=== PATIENT | male | born 1960 | race Caucasian/White ===

== ENCOUNTER 2016-09-18 17:13 | Emergency (ER) | payer MEDICAID ==
[~2016-09-18] VITALS: Ht 182.9 cm; Wt 91.6 kg
[2016-09-18] MEDS ORDERED: PROPRANOLOL HCL10 MG ORAL (17:23)
[2016-09-18 17:35] VITALS: BP 130/61
[2016-09-18] MEDS ORDERED: Norco 5mg/325mg tab ORAL ONE (18:00)
[2016-09-18] MEDS ORDERED: IBUPROFEN600 MG ORAL (18:35)
[2016-09-18] MEDS ORDERED: NORCO 5-325 TA1 EAC1 ORAL (18:35)
[2016-09-18 18:55] VITALS: BP 130/61
--- NOTE | 2016-09-18 23:08 | Emergency Room Report ---
History of Present Illness General Chief Complaint: Laceration Source: Patient Present Illness [facility] The patient is a 55-year-old male presenting for injury to the left index finger. He states that he closed the trunk onto it. He then noticed immediate pain and bleeding. Pain described as an 8/10 dull ache and is worse with touch. Does not radiate. He denies numbness or tingling. He denies any other injury. Tetanus shot was within 10 years. He denies other symptoms Allergies: Coded Allergies: No Known Allergies (Unverified , 09/18/16) Patient History Past Medical History: see triage record Pertinent Family History: none Reviewed Nursing Documentation: PMH: Agreed, PSxH: Agreed Nursing Documentation-PMH Hx Cardiac Problems: Yes - irreg beat Review of Systems All Other Systems: negative except mentioned in HPI Physical Exam Vital Signs Date Time Temp Pulse Resp B/P Pulse Ox O2 Delivery O2 Flow Rate FiO2 09/18/16 17:16 98.8 59 18 130/61 99 Room Air Sp02 EP Interpretation: reviewed, normal General Appearance: no apparent distress, alert, GCS 15, non-toxic Head: normocephalic, atraumatic Eyes: bilateral eye PERRL, bilateral eye normal inspection Musculoskeletal: normal range of motion, other - subungual hematoma of L 2nd digit, tender - distal L 2nd digit Neurologic: alert, oriented x3, responsive, motor strength/tone normal, sensory intact, speech normal Psychiatric: judgement/insight normal, memory normal, mood/affect normal, no suicidal/homicidal ideation Skin: laceration - 2cm linear laceration to palmar surface of L 2nd digit Lymphatic: no adenopathy Procedures Splinting Splinting : Consent: Verbal Location: L 2nd digit Pre-Made Type: metal Splint: finger Pre-Proc Neuro Vasc Exam: normal Post-Proc Neuro Vasc Exam: normal Patient Tolerated: Well Complications: None Laceration/Wound Repair Laceration/Wound Repair : Consent: Verbal Wound Location: upper extremity Wound's Depth, Shape: superficial, linear Wound Length (cm): 2 Wound Explored: clean Irrigated w/ Saline (ccs): 100 Betadine Prep?: Yes Volume Anesthetic (ccs): 0 Wound Debrided: minimal Wound Repaired With: Dermabond Layer Closure?: No Splint Applied?: Yes Type of Splint Applied: metal finger Sling Applied?: Yes Patient Tolerated: Well Complications: None Nail Trepanation Nail Trepanation : Consent: Verbal Nail Trepanation Location: L 2nd Method of Drainage: nail cauterized Sterile Dressing Applied: No Finger Splint: Yes Patient Tolerated: Well Complications: None Medical Decision Making PA Attestation Dr. Curtis is my supervising physician. Patient management was discussed with my supervising physician Diagnostic Impression: Primary Impression: Finger laceration Qualified Codes: S61.219A - Laceration without foreign body of unspecified finger without damage to nail, initial encounter Additional Impression: Subungual hematoma ER Course The patient is a 55-year-old male presenting for injury to the left index finger Ddx considered include but not limited to sprain/strain, fracture, contusion Physical exam: There is a subungual hematoma at the base of the left second finger nail. There is tenderness to palpation over the distal left second digit.. Full active range of motion There is a 2 cm linear laceration to the ulnar surface of the distal phalanx Wound is cleaned with normal saline and Betadine. Dermabond is used with multiple layers and wound is well approximated. The subungual hematoma is drained using cauterizer. Blood was released. A metal finger splint is applied The patient is to followup with primary doctor. ER precautions are given Other X-Ray Diagnostic Results X-Ray ordered: L hand # of Views/Limited Vs Complete: 3 View Interpretation: no fractures, no dislocation, no soft tissue swelling Indication: Pain Impression: No acute disease Date Electronically Signed: Sep 18, 2016 Time Electronically Signed: 23:05 Interpreting ER Physician: Dr. Kirsten WARNER Scribe Text I am acting as scribe for my supervising physician. My supervising physician's interpretation of the L hand xrays are there are no fractures, dislocations or soft tissue swelling. Last Vital Signs Date Time Temp Pulse Resp B/P Pulse Ox O2 Delivery O2 Flow Rate FiO2 09/18/16 18:55 98.8 09/18/16 18:55 18 130/61 99 Room Air 09/18/16 17:16 59 Status: improved Disposition: HOME, SELF-CARE Condition: Improved Scripts Hydrocodone Bit/Acetaminophen 5-325* (NORCO 5-325 TABLET*) 1 Each Tablet 1 TAB ORAL Q6HR Y for For Pain, #8 TAB Prov: TERAYSE CASTELAN P.A. 09/18/16 Ibuprofen* (MOTRIN*) 600 Mg Tablet 600 MG ORAL Q8H Y for For Pain, #30 TAB 0 Refills Prov: AYSE HOWARD 09/18/16 Patient Instructions: Laceration Care, Adult, Subungual Hematoma Additional Instructions: I discussed my findings with the patient. All questions and concerns have been answered. Treatment and medication compliance have been addressed. I advised the patient that they need to follow up with PMD in 3-5 days. Return to ED if symptoms worsen, new symptoms arise, or if needed for any reason. Patient verbalized understanding of discharge instructions. AYSE HOWARD Sep 18, 2016 23:08
--- NOTE | 2016-09-19 12:55 | Diagnostic Imaging Report ---
Indication: PAIN Technique: 3 views left hand Comparison: none Findings: Bones are osteoporotic. No acute fractures. No dislocations. No radiopaque foreign body. Joint spaces are preserved. Impression: Negative
== END 2016-09-18 18:55 | disposition home or self-care (01) ==
LOC: EMR 18:15
DX: S61.211A Laceration without foreign body of left index finger without damage to nail, initial encounter (principal); W22.8XXA Striking against or struck by other objects, initial encounter; Y92.89 Other specified places as the place of occurrence of the external cause
CPT/HCPCS: 12001; 29130; 73130; 99284; Z7502